=== PATIENT | female | born 1940 | race African-American/Black ===

== ENCOUNTER 2016-04-17 09:58 | Inpatient (IN) | payer OTHER ==
--- NOTE | ~2016-04-17 | HP ---
History And Physical [place] [id number] [facility] [place]. [address] NAME: BROOKE MONTERO : 38 STATUS : ADM IN [facility]#: [id number] AGE: 75 ADM/REG DATE : 04/17/16 MR#: [id number] REPORT SERV DATE: 04/17/16 DICTATED BY: JAYNA ONOFRE DATE: 04/17/16 REPORT STATUS : Draft TRANSCRIBED BY: MODL DATE: 04/17/16 DATE OF ADMISSION: 04/17/2016 CHIEF COMPLAINT: Shortness of breath. HISTORY OF PRESENT ILLNESS: The patient is a 75-year-old female with past medical history of COPD and hypertension. She also was diagnosed with sarcoidosis in 05/2015. In 05/2015, she had lymphadenopathy and a pericardial effusion of unknown etiology. She had unexplained weight loss, saw Dr. Sullivan, ultimately had some CT scans PET scans and was referred to Dr. Shaw for pericardial window as well as biopsies to get a diagnosis. Her path report came back as sarcoidosis. This was found in anterior mediastinal lymph nodes. It is felt that her symptomatology was likely due to sarcoid. She was subsequently referred to Dr. Mae. She does have a history of tobacco abuse. She quit smoking the age of 52. She notes over the last three days, she is having increased dyspnea which is worse with exertion. She has had a slight cough but no sputum. She has noticed no wheezing. No lower extremity edema. She denies chest pain. She denies nausea, vomiting, or diarrhea. She denies abdominal pain. She states her symptoms definitely get worse when she moves about. ALLERGIES: SULFA. PAST MEDICAL HISTORY: 1. COPD. 2. Anemia. 3. Hypertension. 4. Pericardial effusion and lymphadenopathy, status post pericardial window. 5. Sarcoidosis. SOCIAL HISTORY: She quit smoking at the age of 52, smoked 1 pack per day for 20 years. Does not use alcohol. FAMILY HISTORY: There are multiple siblings with breast cancer and a sibling with lung cancer. PAST SURGICAL HISTORY: She has had a hysterectomy and a pericardial window. HOME MEDICATIONS: Reviewed and attached. REVIEW OF SYSTEMS: Full 10-point review of systems obtained. Pertinent positives mentioned in the HPI. PHYSICAL EXAMINATION: VITAL SIGNS: Current blood pressure is 102/55, temperature 98.2, pulse 87, respiratory rate 25, and sats are 98% on 3 L. GENERAL: Thin appearing female HEENT: Normocephalic, atraumatic. Throat is clear. NECK: Supple. History And Physical [address] [address] NAME: BROOKE MONTERO : 38 STATUS : ADM IN PAT#: [id number] AGE: 75 ADM/REG DATE : 04/17/16 MR#: [id number] REPORT SERV DATE: 04/17/16 DICTATED BY: JAYNA ONOFRE DATE: 04/17/16 REPORT STATUS : Draft TRANSCRIBED BY: LILA DATE: 04/17/16 HEART: Regular rate and rhythm. LUNGS: Diminished in the bases but otherwise clear. ABDOMEN: Soft, nontender, and nondistended. EXTREMITIES: Warm and dry. She has no significant peripheral edema. NEUROLOGIC: She is alert. She is oriented to person, place, and time. Mood and affect appropriate. LAB AND X-RAY STUDIES: CTA of the chest shows no PE, moderate symmetric bilateral pleural effusions and some atelectasis, cardiomegaly, new moderate pleural effusion measuring 20 mm and a reactive lymph node 10 mm in level 7. EKG shows sinus arrhythmia with a rate of 90s but no acute ST-T wave changes. Chemistry panel was normal other than a creatinine of 1.04, glucose of 151. Her troponin was normal. Her BNP was 238. Chest x-ray shows bibasilar atelectasis with trace fluid and cardiomegaly. H and H 10.8 and 33.9 and platelets are 388. White count was 6.1. Coags were normal. ASSESSMENT/PLAN: 1. Dyspnea and hypoxemia with associated moderate pericardial effusion at about 20 mm, larger than it was previously with associated small pleural effusions. Her blood pressure currently is 102/55. Certainly with pleural effusions, she could consider diuresis but I think this is mostly related symptomatically to her possible pericardial effusion. I think she needs a stat echo. I have spoken with NATHALY Hi, he is going to see the patient in consultation. We will follow up her stat echo. Given the fact that she was diagnosed with sarcoid. This could certainly be related to the sarcoidosis, and it seems to make the most sense. We will place her on IV steroids empirically at this point. If her MAP drops below 65 or if she drops her systolic under 100, we will give her fluid bolus. We will await CT surgery input. 2. Pericardial effusion with history of sarcoid diagnosed on previous lymph nodes related to previous pericardial effusion, certainly raises the possibility of cardiac sarcoid. I think she needs to be seen by see [facility]. We will have them see the patient in consultation. Again I am obtaining a stat echo. I am placing her on some steroids. We will check 2 more sets of cardiac enzymes. Repeat her EKG in the morning. Certainly if this is cardiac sarcoid, she is at risk for arrhythmia and heart block. 3. COPD with previous history of tobacco abuse. She is not wheezing today on exam. I am going to provide some p.r.n. DuoNeb. She can continue her Spiriva. 4. History of hypertension. She took all of her blood pressure medications today and she is actually only 102/55, I think with a moderate pericardial effusion and possible symptoms of tamponade, I would like to avoid giving her blood pressure medications, we will hold these. 5. Sarcoidosis. Please see numbers 1 and 2. 6. Deep venous thrombosis prophylaxis with subcutaneous heparin. 7. Disposition pending above. WHITLEY/LILA Jayna Alvarado History And Physical [address] [address] NAME: BROOKE MONTERO : 38 STATUS : ADM IN [facility]#: [id number] AGE: 75 ADM/REG DATE : 04/17/16 MR#: [id number] REPORT SERV DATE: 04/17/16 DICTATED BY: JAYNA ONOFRE DATE: 04/17/16 REPORT STATUS : Draft TRANSCRIBED BY: LILA DATE: 04/17/16 Fabiola Onofre / [id number] CC: Fabiola Oneal M.D. Pamela Sud, M.D.
--- NOTE | ~2016-04-17 | CN ---
Consultation Report [facility] [address] [place]. [address] NAME: BROOKE MONTERO : 38 STATUS : ADM IN PAT#: [id number] AGE: 75 ADM/REG DATE : 04/17/16 MR#: [id number] REPORT SERV DATE: 04/17/16 DICTATED BY: MARIELENA MILLER DATE: 04/17/16 REPORT STATUS : Draft TRANSCRIBED BY: MODL DATE: 04/17/16 CARDIOLOGY CONSULTATION DATE OF CONSULTATION: REFERRING REASON: Pericardial effusion. HISTORY OF PRESENT ILLNESS: This is a pleasant 75-year-old female, who has been followed by Dr. Shaw and Dr. Mae from Pulmonary. She has a known pulmonary sarcoidosis. The patient underwent pericardial window and lymph node removal in 05/[address] Shwa. She has some mediastinal lymphadenopathy and previously has been seen by Dr. Sullivan. She has been since then followed only by Dr. Mae. She was not on oxygen or steroids. She was on chronic diuretics. Dose has been decreased by PCP recently to every other day 40 mg a day. She developed progressive dyspnea with some signs of paroxysmal nocturnal dyspnea over the last few days. She denied any chest pain, palpitation, or syncope. She presented to the emergency room. CT of the chest was negative for pulmonary embolism, but revealed some emphysematous changes, moderate bilateral pleural effusion, cardiomegaly, and moderate pericardial effusion with some signs of pulmonary hypertension. A stat echocardiogram interpreted by Dr. Hearn confirmed moderate pericardial effusion but reportedly no signs of tamponade physiology based on conversation between Dr. Hearn and Dr. Shaw. The patient has received diuretics, steroids, and oxygen, and she is in the process to be transfer to the [facility]. She denies any recent chest pain or other symptoms. She is a poor historian, however. She walks without any support and lives independently. She has a remote history of smoking, but quit 24 years ago. The rest of the review of systems is negative. PAST MEDICAL HISTORY: 1. Pulmonary sarcoidosis. 2. Status post lymph node removal and pericardial window by Dr. Shaw in 05/2015. 3. Chronic anemia. 4. Hypertension. 5. History of weight loss, previously followed by Dr. Sullivan. 6. COPD. 7. Remote history of smoking. SOCIAL HISTORY: The patient lives independently with her sister and nephew. She quit smoking 24 years ago, smoked entire life. Denies drinking alcohol or using street drugs. She is walking without any support. FAMILY HISTORY: Negative for sudden cardiac or premature coronary artery disease in the family. HOME MEDICATIONS: Albuterol p.r.n.; Lotrel, which is amlodipine/benazepril 5/20 mg once a Consultation Report [address] [address] NAME: BROOKE MONTERO : 38 STATUS : ADM IN [facility]#: [id number] AGE: 75 ADM/REG DATE : 04/17/16 MR#: [id number] REPORT SERV DATE: 04/17/16 DICTATED BY: MARIELENA MILLER DATE: 04/17/16 REPORT STATUS : Draft TRANSCRIBED BY: LILA DATE: 04/17/16 day; calcium; carvedilol 6.25 mg twice a day; Lasix 40 mg, but the patient reported taking every other day only; multivitamins; Spiriva; and iron supplement. PHYSICAL EXAMINATION: GENERAL: In no acute distress. The patient is able to lie flat without any dyspnea. VITAL SIGNS: Blood pressure 102/55, heart rate 87 and regular. HEENT: Pupils reactive to light and accommodation. Moist mucosa membrane. NECK: No JVD. Normal carotid upstroke. No carotid bruits. LUNGS: Decreased breath sounds, but no crackles. HEART: S1, S2. No S3 or S4. I have not appreciated any distant heart sounds. There are normal heart sounds auscultated. ABDOMEN: Distended. Nontender. LOWER EXTREMITIES: Trace edema around the ankle with decreased pedal pulses bilaterally. SKIN: Warm with normal turgor. MS: No kyphosis. NEURO/PSY: Alert and oriented. Nonfocal. DATA: CBC remarkable for hemoglobin 10.8. Brain natriuretic peptid is 238. Creatinine 1.0. Troponin x1 is negative. CT of the chest as above. Chest x-ray initially revealed some cardiomegaly with bibasilar atelectasis. Electrocardiogram with sinus tachycardia at 104 beats per minute with a couple of PACs, nonspecific ST-segment changes. ASSESSMENT AND PLAN: 1. Dyspnea on exertion of multifactorial etiology. 2. Pulmonary sarcoidosis. 3. Moderate pericardial effusion without obvious signs of tamponade physiology. Under this picture, the patient will be closely monitored. She has been started on diuretic, steroids, and oxygen. At the present time, there is no clear evidence of involvement of sarcoidosis of her heart. In case that her pericardial effusion, will not be improving, she may require an other pericardiocentesis. The patient is comfortable able to lie flat in bed. Thank you for the consult. ROSE/LILA Marielena Miller M.D. Consultation Report [address] [place]. [address] NAME: BROOKE MONTERO : 38 STATUS : ADM IN [facility]#: [id number] AGE: 75 ADM/REG DATE : 04/17/16 MR#: [id number] REPORT SERV DATE: 04/17/16 DICTATED BY: MARIELENA MILLER DATE: 04/17/16 REPORT STATUS : Draft TRANSCRIBED BY: LILA DATE: 04/17/16 / [id number] CC: Fabiola Oneal M.D.
--- NOTE | ~2016-04-17 | DS ---
Discharge Summary [facility] [address] [facility] [place]. [address] NAME: BROOKE MONTERO : 38 STATUS : DIS IN PAT#: [id number] AGE: 75 ADM/REG DATE : 04/17/16 MR#: [id number] REPORT SERV DATE: 04/21/16 DICTATED BY: GABRIEL LAM DATE: 04/20/16 REPORT STATUS : Draft TRANSCRIBED BY: MODL DATE: 04/20/16 ADMISSION DATE: 04/17/2016 DISCHARGE DATE: 04/20/2016 DISCHARGE DIAGNOSES: 1. Moderate-size pericardial effusion. 2. Sarcoidosis, pulmonary type. 3. Chronic obstructive pulmonary disease. 4. Chronic anemia. 5. Hypertension. CONSULTANTS DURING THIS HOSPITALIZATION: Dr. Jalen Shaw of Cardiothoracic Surgery. Dr. Magdiel Renteria of Cardiology. INVASIVE PROCEDURES DONE DURING THIS HOSPITALIZATION: None. BRIEF HISTORY OF PRESENT ILLNESS: The patient is a 75-year-old female with COPD and hypertension and diagnosed sarcoid with lymphadenopathy, came in with pericardial effusion, weight loss, so she was admitted. For detailed history and physical exam, please see note dictated by Dr. Mireille Onofre on 04/17/2016. HOSPITAL COURSE: After being admitted to the hospital, this patient was seen by Cardiothoracic Surgery in anticipation that she may need a pericardial window. However, looking at it, there was no tamponade physiology on urgent echo and Cardiothoracic Surgery recommended that we treat her with steroids and IV diuretics. These were given. Cardiology saw the patient and recommended the same. Within 48 hours, this patient's condition improved. A repeat echo was done, which showed only a small amount of pericardial effusion at the apex. This patient was feeling well. She was off oxygen. She wanted to go home and recover in the outpatient setting. During this hospitalization, I did have a discussion with Dr. Rosenthal of Pulmonology regarding the treatment of her sarcoid and it was recommended that she should be treated with short course of steroids and follow up with Dr. Mae in the outpatient setting. Otherwise, she remained stable and she is being discharged in stable condition. DISCHARGE DISPOSITION: Home. DISCHARGE ACTIVITY: As tolerated. DISCHARGED DIET: Low-sodium diet. DISCHARGE MEDICATIONS: Prednisone 60 mg p.o. taper, vitamin D 600 mg once daily, Lasix 40 mg once every 48 hours, multivitamins one tablet every morning, Spiriva one capsule inhalation once daily, vitamin E 1000 units once daily, Lotrel 5/20 mg once every morning, Coreg 6.25 mg p.o. twice daily, iron supplements, Move Free PiCloud, albuterol two puffs 5 times daily p.r.n. for shortness of breath, and albuterol neb twice daily p.r.n. for shortness of breath. Discharge Summary [address] [address] NAME: BROOKE MONTERO : 36 STATUS : DIS IN PAT#: [id number] AGE: 75 ADM/REG DATE : 04/17/16 MR#: [id number] REPORT SERV DATE: 04/21/16 DICTATED BY: GABRIEL LAM DATE: 04/20/16 REPORT STATUS : Draft TRANSCRIBED BY: LILA DATE: 04/20/16 DISCHARGE FOLLOWUP: With Dr. Nicol Mae in two to four weeks, with the patient's primary care physician Dr. Edis Henson as scheduled previously. More than 30 minutes spent planning this patient's discharge, reconciling medications, writing prescriptions, discussing hospital care, and followup with the patient and documenting this discharge. ISRAEL/LILA Gabriel Lam M.D. / [id number] CC: Fabiola Oneal M.D. Ondrej J Lisy, M.D. William Drinnon, M.D. Pamela Sud, M.D.
--- NOTE | ~2016-04-17 | CN ---
Consultation Report [facility] [address] [place]. [address] NAME: BROOKE MONTERO : 36 STATUS : ADM IN PAT#: [id number] AGE: 75 ADM/REG DATE : 04/17/16 MR#: [id number] REPORT SERV DATE: 04/18/16 DICTATED BY: ZENIA SHAW JR. DATE: 04/18/16 REPORT STATUS : Draft TRANSCRIBED BY: MODL DATE: 04/18/16 CONSULTATION DATE OF CONSULTATION: 04/17/2016 REASON FOR CONSULTATION: Pericardial effusion. BRIEF HISTORY: This is a 75-year-old, female, who is well known to our practice having undergone a robotic-assisted right thoracoscopy in 05/2015 with excision of right internal mammary artery lymph node, drainage of pericardial effusion, as well as excision of entire anterior mediastinal mass. The pathology was consistent with sarcoidosis and she was referred to Pulmonary for treatment. She recently presented and started developing shortness of breath and presented to the emergency department yesterday morning. CTA of the chest demonstrated bilateral pleural effusions as well as a moderate pericardial effusion with no evident of tamponade. She also had an elevated BNP of greater than 200. We are asked to see her to make recommendations regarding her pericardial effusion. PAST MEDICAL HISTORY: Significant for anemia, hypertension, and sarcoidosis. PAST SURGICAL HISTORY: Significant for the above-mentioned right thoracoscopy in 2015. SOCIAL HISTORY: She is single and drinks socially. She previously smoked cigarettes, one pack per day for 20 years, but quit 22 years ago at the age of 52. FAMILY HISTORY: Significant for two sisters with history of breast cancer as well as a sister with a history of lung cancer. ALLERGIES: INCLUDE SULFA. HOME MEDICATIONS: Include albuterol as needed, Lotrel 5/20 mg once p.o. daily, calcium, carvedilol 6.25 mg p.o. twice daily, Lasix 40 mg one p.o. every other day, as well as a multivitamin and iron supplement and Spiriva. REVIEW OF SYSTEMS: Significant for shortness of breath and fatigue. A complete 12-point review of systems was performed. All other systems are negative except for the above-mentioned pertinent positives in history of present illness. PHYSICAL EXAMINATION: GENERAL: This is a 75-year-old, female, who is alert, oriented, in no acute distress. VITAL SIGNS: Blood pressure 112/63, heart rate between 80 and 90 beats per minute, oxygen saturation 98% on room air. Afebrile. Height 5 feet 4 inches, weight 62 kg. HEENT: Normocephalic, atraumatic. Pupils equal, round, react to light. Ears, nose, and Consultation Report [facility] [address] [place]. [address] NAME: BROOKE MONTERO : 36 STATUS : ADM IN [facility]#: [id number] AGE: 75 ADM/REG DATE : 04/17/16 MR#: [id number] REPORT SERV DATE: 04/18/16 DICTATED BY: ZENIA SHAW JR. DATE: 04/18/16 REPORT STATUS : Draft TRANSCRIBED BY: LILA DATE: 04/18/16 throat; without lesions or exudate. NECK: Supple. No lymphadenopathy, JVD, or bruits. Trachea midline. No obvious goiter. CHEST: Symmetrical with no obvious chest wall deformities. CARDIOVASCULAR: Regular rate and rhythm. S1, S2. No murmurs or gallops. RESPIRATORY: Decreased breath sounds bilaterally. ABDOMEN: Soft, nontender, and nondistended. Positive bowel sounds in all four quadrants. No hepatosplenomegaly. : The patient voids without difficulty. Further examination was deferred. EXTREMITIES: No cyanosis. 1+ edema on bilateral lower extremities. MUSCULOSKELETAL: No obvious kyphosis or scoliosis. SKIN: Warm and dry with normal turgor. No obvious breakdown or lesions noted. There is scarring from her recent right thoracoscopy. NEUROLOGIC: No focal neurological deficits. PSYCHIATRIC: Normal affect. She is pleasant. DIAGNOSTIC DATA: CTA of the chest 04/17/2016, demonstrating enlargement of the central pulmonary arteries compatible with pulmonary hypertension, moderate symmetrical bilateral pleural effusions with some dependent atelectatic changes in the upper and lower lobes of both lungs, stable cardiomegaly with moderate pericardial effusion, borderline prominent level 7 lymph node measuring up to 10 mm in short axis. Stable right renal cyst. LABORATORY DATA: Laboratories dated 04/17/2016, sodium 139, potassium 3.5, BUN 16, creatinine 1.04, glucose 151. BNP 238.5. White blood cell count 6.1, hemoglobin 10.8, hematocrit 33.9, platelet count 388. PROBLEM LIST: 1. Moderate-sized pericardial effusion. 2. Bilateral pleural effusions. 3. Sarcoidosis. 4. Hypertension. 5. Chronic anemia. IMPRESSION AND PLAN: This is a 75-year-old, female, who presented with shortness of breath with bilateral pleural effusions as well as a moderate pericardial effusion. She does have some bilateral lower extremity edema, and she was not treated for diagnosed sarcoidosis when she was diagnosed in 05/2015. She shows no signs of tamponade and remains hemodynamically stable. She just underwent an echocardiogram, which again demonstrated a moderate-sized pericardial effusion with no evidence of tamponade and discuss this with Cardiology and they agree with steroids and diuretic therapy with a short interval echocardiogram. We will go ahead and give her IV Lasix and monitor from a hemodynamic standpoint. DICTATED BY: May Nava NP Consultation Report [place] [address] [place]. [address] NAME: BROOKE MONTERO : 36 STATUS : ADM IN [facility]#: [id number] AGE: 75 ADM/REG DATE : 04/17/16 MR#: [id number] REPORT SERV DATE: 04/18/16 DICTATED BY: ZENIA SHAW JR. DATE: 04/18/16 REPORT STATUS : Draft TRANSCRIBED BY: LILA DATE: 04/18/16 AM/LILA Zenia Shaw Jr., M.D. / [id number] CC: Fabiola Oneal M.D.
[2016-04-17 09:31] LABS: BASOPHILS 0.3 %; BASOPHILS ABSOLUTE 0.02 10/3/uL (0.0-0.16); EOSINOPHILS 3.1 %; EOSINOPHILS ABSOLUTE 0.19 10/3/uL (0.0-0.53); ER CBC TAT 0 Hrs 05 Mins; HEMATOCRIT 33.9 % (36.0-48.0); HEMOGLOBIN 10.8 g/dL (12.0-16.0); IMMATURE GRANULOCYTES 0.3 %; IMMATURE GRANULOCYTES ABSOLUTE 0.02 10/3/uL (0.0-0.11); LYMPHOCYTES 7.1 %; LYMPHOCYTES ABSOLUTE 0.43 10/3/uL (0.67-4.30); MEAN CORPUS HGB CONC 31.9 g/dL (32.0-36.0); MEAN PLATELET VOLUME 8.6 fL (9.2-13.0); MONOCYTES 10.9 %; MONOCYTES ABSOLUTE 0.66 10/3/uL (0.21-1.20); NEUTROPHILS 78.3 %; NEUTROPHILS ABSOLUTE 4.75 10/3/uL (2.02-8.40); RED CELL COUNT 3.86 10/6/uL (4.0-5.6); WHITE BLOOD CELLS 6.1 10/3/uL (4.5-10.5)
[2016-04-17 09:34] LABS: MANUAL DIFF NO %; MEAN CORPUSCULAR VOLUME 87.8 fL (80-100); PLATELET COUNT 388 10/3/uL (150-400)
[2016-04-17 09:38] LABS: INTERNATIONAL NORMAL RATI 1.3 UNITS (-); PARTIAL THROMBO TIME 33.2 SEC (22.5-37.2)
[2016-04-17 09:51] LABS: BUN (BLOOD UREA NITROGEN) 16 MG/DL (6-23); CALCIUM, SERUM 8.6 MG/DL (8.5-10.4); CHEST PAIN PROFILE TAT 0 Hrs 25 Mins; CHLORIDE, SERUM 101 MMOL/L (96-112); CO2 (CARBON DIOXIDE) 31 MMOL/L (24-34); CREATININE 1.04 MG/DL (0.55-1.02); GFR AFRICAN AMERICAN 60 ML/MIN (>=60); GFR NON AFRICAN AMERICAN 52 ML/MIN (>=60); GLUCOSE, SERUM 151 MG/DL (60-99); POTASSIUM, SERUM 3.5 MMOL/L (3.5-5.3); SODIUM, SERUM 139 MMOL/L (135-148); TROPONIN I <0.02 NG/ML (<0.05)
[~2016-04-17 09:58] MED LIST: BEN25 PO; CADUET5 MG/20 MG PO; CITRACAL PO; COREG12 PO; COREG6 PO; KLOR-CON M2020 MEQ PO; L40 PO; MOVE FREE PO; MULTIPLE VIT PO; PCET PO; VITE PO
[2016-04-17] MEDS ORDERED: L40 PO (12:41)
[2016-04-17] MEDS ORDERED: LOTREL1 CA2 PO (12:41)
[2016-04-17] MEDS ORDERED: COREG6 PO (12:41)
[2016-04-17] MEDS ORDERED: VITE1000 PO (12:42)
[2016-04-17] MEDS ORDERED: MULTIVIT/MIN PO (12:42)
[2016-04-17] MEDS ORDERED: CALTRA600D PO (12:42)
[2016-04-17] MEDS ORDERED: IRON SUPPLEMENT PO (12:43)
[2016-04-17] MEDS ORDERED: MOVE FREE JOIN1 EACH PO (12:43)
[2016-04-17] MEDS ORDERED: SPIRIVA INH (12:44)
[2016-04-17] MEDS ORDERED: PROAIR HFA INH (12:44)
[2016-04-17] MEDS ORDERED: ALBUTEROL0.083 % INH (12:45)
[2016-04-17 19:23] LABS: TROPONIN I <0.02 NG/ML (<0.05)
[2016-04-18 02:02] LABS: BASOPHILS 0 %; EOSINOPHILS 0 %; IMMATURE GRANULOCYTES 0.4 %; IMMATURE GRANULOCYTES ABSOLUTE 0.02 10/3/uL (0.0-0.11); LYMPHOCYTES 7.6 %; LYMPHOCYTES ABSOLUTE 0.39 10/3/uL (0.67-4.30); MEAN CORPUS HGB CONC 32.4 g/dL (32.0-36.0); MEAN CORPUSCULAR HEMOGLOB 28.7 pg (26.0-34.0); MEAN CORPUSCULAR VOLUME 88.8 fL (80-100); MEAN PLATELET VOLUME 8.7 fL (9.2-13.0); MONOCYTES 1.7 %; MONOCYTES ABSOLUTE 0.09 10/3/uL (0.21-1.20); NEUTROPHILS 90.3 %; NEUTROPHILS ABSOLUTE 4.65 10/3/uL (2.02-8.40); PLATELET COUNT 404 10/3/uL (150-400); RBC DISTRIBUTION WIDTH 13.6 % (12.0-16.0); RED CELL COUNT 3.83 10/6/uL (4.0-5.6); WHITE BLOOD CELLS 5.2 10/3/uL (4.5-10.5)
[2016-04-18 02:03] LABS: MANUAL DIFF NO %
[2016-04-18 02:21] LABS: CALCIUM, SERUM 8.6 MG/DL (8.5-10.4); CHLORIDE, SERUM 102 MMOL/L (96-112); CO2 (CARBON DIOXIDE) 31 MMOL/L (24-34); CREATININE 1.08 MG/DL (0.55-1.02); GFR AFRICAN AMERICAN 57 ML/MIN (>=60); GFR NON AFRICAN AMERICAN 49 ML/MIN (>=60); GLUCOSE, SERUM 159 MG/DL (60-99); SODIUM, SERUM 142 MMOL/L (135-148); TROPONIN I <0.02 NG/ML (<0.05)
[2016-04-18 02:22] LABS: BUN (BLOOD UREA NITROGEN) 21 MG/DL (6-23); POTASSIUM, SERUM 4.3 MMOL/L (3.5-5.3)
[2016-04-19 04:44] LABS: BASOPHILS 0.1 %; BASOPHILS ABSOLUTE 0.01 10/3/uL (0.0-0.16); EOSINOPHILS 0 %; HEMATOCRIT 34.3 % (36.0-48.0); HEMOGLOBIN 10.7 g/dL (12.0-16.0); IMMATURE GRANULOCYTES 0.3 %; IMMATURE GRANULOCYTES ABSOLUTE 0.05 10/3/uL (0.0-0.11); LYMPHOCYTES 2.8 %; LYMPHOCYTES ABSOLUTE 0.42 10/3/uL (0.67-4.30); MEAN CORPUS HGB CONC 31.2 g/dL (32.0-36.0); MEAN CORPUSCULAR HEMOGLOB 27.9 pg (26.0-34.0); MEAN CORPUSCULAR VOLUME 89.3 fL (80-100); MEAN PLATELET VOLUME 8.8 fL (9.2-13.0); MONOCYTES 3.6 %; MONOCYTES ABSOLUTE 0.54 10/3/uL (0.21-1.20); NEUTROPHILS 93.2 %; NEUTROPHILS ABSOLUTE 13.95 10/3/uL (2.02-8.40); PLATELET COUNT 439 10/3/uL (150-400); RBC DISTRIBUTION WIDTH 13.7 % (12.0-16.0); RED CELL COUNT 3.84 10/6/uL (4.0-5.6)
[2016-04-19 04:53] LABS: CALCIUM, SERUM 9.2 MG/DL (8.5-10.4); CHLORIDE, SERUM 106 MMOL/L (96-112); CO2 (CARBON DIOXIDE) 31 MMOL/L (24-34); CREATININE 0.99 MG/DL (0.55-1.02); GFR AFRICAN AMERICAN 64 ML/MIN (>=60); GFR NON AFRICAN AMERICAN 55 ML/MIN (>=60); GLUCOSE, SERUM 143 MG/DL (60-99); PHOSPHORUS, SERUM 2.6 MG/DL (2.5-4.5); POTASSIUM, SERUM 4.7 MMOL/L (3.5-5.3); SODIUM, SERUM 144 MMOL/L (135-148)
[2016-04-19 04:57] LABS: MANUAL DIFF NO %
[2016-04-19 04:58] LABS: ALBUMIN 2.7 G/DL (3.5-5.0); BUN (BLOOD UREA NITROGEN) 27 MG/DL (6-23)
[2016-04-20 06:17] LABS: ALBUMIN 2.6 G/DL (3.5-5.0); BUN (BLOOD UREA NITROGEN) 29 MG/DL (6-23); CALCIUM, SERUM 8.8 MG/DL (8.5-10.4); CHLORIDE, SERUM 103 MMOL/L (96-112); CO2 (CARBON DIOXIDE) 33 MMOL/L (24-34); CREATININE 1.07 MG/DL (0.55-1.02); GFR AFRICAN AMERICAN 58 ML/MIN (>=60); GFR NON AFRICAN AMERICAN 50 ML/MIN (>=60); GLUCOSE, SERUM 131 MG/DL (60-99); PHOSPHORUS, SERUM 2.4 MG/DL (2.5-4.5); POTASSIUM, SERUM 4.7 MMOL/L (3.5-5.3); SODIUM, SERUM 142 MMOL/L (135-148)
[2016-04-20] MEDS ORDERED: FESO4 PO (15:01)
[2016-04-20] MEDS ORDERED: P20 PO (15:04)
[2016-11-11] MEDS ORDERED: BREO ELLIPTA 21 EACH INH (21:08)
[2016-11-11] MEDS ORDERED: INCRUSE ELLI62.5 MCG INH (21:08)
[2016-11-11] MEDS ORDERED: KLOR-CON M2020 MEQ PO (21:11)
[2016-11-14] MEDS ORDERED: LEVAQUIN5T PO (13:01)
[2016-11-14] MEDS ORDERED: Z-PAK PO (13:02)
[2016-11-14] MEDS ORDERED: P10 PO ×2 (13:06→13:08)
[2016-11-14] MEDS ORDERED: P20 PO (13:07)
== END 2016-04-20 17:03 | disposition home or self-care (01) | DRG 315 ==
LOC: ER 09:58 → 6NO 15:24
PROVIDERS: Emergency Medicine; Internal Medicine
DX: I31.3 Pericardial effusion (noninflammatory) (principal); J90 Pleural effusion, not elsewhere classified; I27.2 Other secondary pulmonary hypertension; J44.9 Chronic obstructive pulmonary disease, unspecified; D86.0 Sarcoidosis of lung; I10 Essential (primary) hypertension; D63.8 Anemia in other chronic diseases classified elsewhere; R63.4 Abnormal weight loss; Z68.23 Body mass index [BMI] 23.0-23.9, adult; Z87.891 Personal history of nicotine dependence; Z88.2 Allergy status to sulfonamides
CPT/HCPCS: 71010; 71275; 80048; 80069; 83735; 83880; 84443; 84484; 85025; 85610; 85652; 85730; 86140; 93005; 93307; 99285; A9270-GY; C8929; J1956; J2920; J2930; Q9957; Q9967